=== PATIENT | female | born 1950 | race Caucasian/White ===

== ENCOUNTER 2024-03-01 11:30 | Day surgery (SDC) | payer BC, OTHER ==
--- NOTE | 2024-02-27 09:49 | RAD REPORT ---
EXAM DESCRIPTION: RAD - Chest Pa And Lat (2 Views) - 02/27/2024 9:42 am CLINICAL HISTORY: Pre op pending heart catheterization Chest pain. COMPARISON: CHEST PA AND LAT 2 VIEW dated 12/12/2013 TECHNIQUE: PA and lateral views of the chest were obtained. FINDINGS: The lungs are hyperexpanded compatible with COPD. The heart is upper limit of normal in si ze. No fracture or aggressive bony process. IMPRESSION: COPD without acute process identified. The USPSTF recommends annual screening for lung cancer with low-dose CT (LDCT) in adults aged 50 to 80 years who have a 20 pack-year smoking history and currently smoke or have quit within the past 15 years.
[2024-02-27 09:50] LABS: Absolute Eosinophils 0.2 K/uL (0-0.5); Absolute Lymphocytes (CBC) 2.3 K/uL (0.7-4.9); Absolute Monocytes 0.7 K/uL (0.1-1.3); Absolute Neutrophil 2.4 K/uL (1.8-8.0); Basophils % 0.8 % (0-1.3); Eosinophils % 2.8 % (0-4.4); Hematocrit 42.5 % (36.0-45.0); Hemoglobin 13.9 g/dL (12.0-15.0); Lymphocytes % 41.5 % (15.3-44.8); MCH 30.3 pg (27.0-35.0); MCHC 32.8 g/dL (32.0-36.0); MCV 92.6 fL (80-100); MPV 8.1 fL (7.6-11.3); Monocytes % 11.8 % (3.3-12.3); Neutrophils % 43.1 % (41.7-73.7); Platelets 255 thou/uL (152-406); RBC Red Blood Cell Count 4.59 M/uL (3.86-4.86); Red Cell Distribution Width 13.5 % (12.1-15.2)
[2024-02-27 09:52] LABS: PT Prothrombin Time 10.4 SECONDS (9.5-12.5); PTT, Activated Partial Thromb 29.3 SECONDS (24.3-36.9); Protime INR 0.94
[2024-02-27 10:08] LABS: Anion Gap 5.6 mEq/L (5.0-15.0); Potassium 3.6 mEq/L (3.5-5.1)
--- NOTE | 2024-02-27 12:19 | EKG ---
Test Date: 2024-02-27 Test Time: 09:29:51 [employer] Instructor: FREDO MEASUREMENT RESULTS: Intervals: Rate: 44 OR: 176 QRSD: 98 QT: 466 QTc: 398 Moca: P: 59 OR: 176 QRS: -36 T: 102 INTERPRETIVE STATEMENTS: Marked sinus bradycardia Left axis deviation Incomplete right bundle branch block Septal infarct, age undetermined Abnormal ECG Compared to ECG 12/12/2013 07:57:25 Left-axis deviation now present Incomplete right bundle-branch block now present Myocardial infarct finding now present Left ventricular hypertrophy no longer present Electronically Signed On 02-27-24 12:18:47 CDT by Jc Tucker
[2024-03-01] MEDS ORDERED: HEPA 1000U/500MLS 2,000 UNIT/1,000 ML BAG IV ONE (12:47)
[2024-03-01] MEDS ORDERED: LIDOCAINE 1% 20 ML MDV ONE (12:48)
[2024-03-01] MEDS ORDERED: LIDOCAINE 1% MPF 30 ML VIAL ONE (12:48)
[2024-03-01 12:50] VITALS: TEMP 97
[2024-03-01] MEDS: NA CHLORIDE 0.9% 500 ML ONE (12:57)
[2024-03-01] MEDS ORDERED: FENTANYL CITR 100 MCG/2 ML ONE (13:38)
[2024-03-01] MEDS ORDERED: MIDAZOLAM HCL 2 MG/2 ML INJ ONE (13:38)
[2024-03-01] MEDS ORDERED: VERAPAMIL HCL 10 MG/4 ML VIAL IV ONE (13:38)
[2024-03-01] MEDS ORDERED: HEPARIN 5000 UNIT/ML 1 ML VIAL ONE (13:46)
[2024-03-01] MEDS ORDERED: FAMOTIDINE 20 MG TAB ONE (14:20)
[2024-03-01] MEDS ORDERED: HYDRALAZINE HCL 20 MG/ML VIAL ONE (14:33)
[2024-03-01] MEDS ORDERED: ASPIRIN 325 MG TAB ONE (14:42)
[2024-03-01] MEDS ORDERED: HEPARIN 10,000 UNIT/10 ML VIAL IV ONE (14:42)
[2024-03-01] MEDS ORDERED: CLOPIDOGREL 75 MG TABLET ONE (14:42)
--- NOTE | 2024-03-01 15:12 | OP ---
Date of Procedure: 03/01/2024 Surgeon: ISAURA GUSTAFSON Procedures Performed: 1.Selective coronary angiogram. 2.Left heart catheterization. 3.PCI of severe mid diagonal 1 branch, which is a large vessel, I used a 2.75 x 16 mm Synergy drug-e luting stent. Indication: Angina with abnormal stress test. Access: Right radial artery 6-Latvian, closed with TR band. Complications: None. Bleeding: Less than 50 mL. Anesthesia: Total sedation time was 1 hour, used fentanyl and Versed. Description Of Procedure: After risks, benefits, and alternatives were explained, the patient agreed to procedure and signed informed consent. The patient was brought into cardiac catheterization [facility], prepped and draped in sterile fashion. Then, I accessed right radial artery using pediatric micropuncture kit, placed a 6-Latvian Slender sheath, and took 5-Latvian [place] 4 catheter into the aort ic root, I was rewiring across the aortic valve, measured the LVEDP. Pullback did not record any gra dient and then engaged the left main, took standard views and then the RCA, took standard views, and then exchanged for a 6-Latvian EBU3.5 guide, gave systemic heparin to assure ACT level above 250, gave 600 mg of Plavix and 325 mg of aspirin and then took a run-through wire into the left main and into the LAD and then to the diagonal branch and then using a 2.5 compliant and noncompliant balloon, lesi on expanded, but not fully, and then I used 2.75 x 10 mm cutting balloon wolverine and the lesion exp anded very well and then I placed 2.75 x 60 mm Synergy drug-eluting stent with excellent expansion. Then, removed the wire. Final angiogram was satisfactory. Removed the guide and the sheath, placed TR band with good hemostasis. Findings: 1.Left main, large and normal. 2.LAD, proximal segment is normal. Diagonal 1 branch is very large and has severe mid diagonal 1 br anch, severe stenosis. 2.75 x 16 mm Synergy drug-eluting stent was used to do PCI with excellent exp ansion and then in the mid LAD, there is focal 30% stenosis. LAD is normal. 3.Left circumflex; large and codominant and proximal 30% to 40% and rest of it is normal. 4.RCA is small, but codominant, proximal 40%, mid 70% stenosis. 5.LVEDP elevated at 90 mmHg. Conclusions: 1.Severe mid diagonal 1 branch stenosis which is a large vessel, status post successful PCI as above . 2.Severe mid RCA stenosis. We will plan for possible staged PCI in about 4 to 6 weeks versus repeat ing stress test prior. 3.Moderate coronary artery disease elsewhere and elevated LVEDP. Recommendations: 1.Aspirin, Plavix, and high-dose statin. 2.Cardiac risk modification and plan for a stress test in about 2 months. If it still shows reversi ble ischemia in the inferior leads, then I will fix that RCA. SR/MODL Voice ID: [id number] Report ID: [id number]
[2024-03-01 18:49] VITALS: O2SAT 99
[2024-03-01 19:08] VITALS: BP 132/80
== END 2024-03-01 18:56 | disposition home or self-care (01) ==
LOC: CCL 11:30
PROVIDERS: ATTEND Internal Medicine
DX: I25.110 Atherosclerotic heart disease of native coronary artery with unstable angina pectoris (principal); I48.91 Unspecified atrial fibrillation; I45.10 Unspecified right bundle-branch block; I65.22 Occlusion and stenosis of left carotid artery; I10 Essential (primary) hypertension; R00.1 Bradycardia, unspecified; E11.40 Type 2 diabetes mellitus with diabetic neuropathy, unspecified; E78.2 Mixed hyperlipidemia; E03.9 Hypothyroidism, unspecified; Z87.891 Personal history of nicotine dependence; Z79.01 Long term (current) use of anticoagulants; Z79.84 Long term (current) use of oral hypoglycemic drugs; Z79.899 Other long term (current) drug therapy
CPT/HCPCS: 93005; 85025; 80048; 36415; 85610; 82947; 85347 ×2; 85730; 71046; 93458; 76937; C1893; Q9967; C1725; C9600; J1644; J0360; J2001; J2250; J3010; J7040; 99152; 99153